=== PATIENT | male | born 1985 | race African-American/Black ===

== ENCOUNTER 2016-09-22 17:21 | Emergency (ER) | payer SELFPAY ==
[~2016-09-22] VITALS: Ht 193 cm; Wt 81.8 kg
[~2016-09-22 17:21] MED LIST: EXJA500T; FOLI5CAP PO
[2016-09-22 17:27] VITALS: BP 133/73; PULSE 120; RESP 20; TEMP 98.9; O2SAT 94
[2016-09-22] MEDS ORDERED: MORPHINE SULFATE 4 MG/ML INJ IV PUSH ONE ×2 (21:15→23:15)
[2016-09-22] MEDS ORDERED: SODIUM CHLOR 0.9% 1000 ML INJ 1,000 ML IV ONE (21:15)
[2016-09-22] MEDS ORDERED: ONDANSETRON HCL 4 MG/2 ML VIAL IV ONE (21:15)
--- NOTE | 2016-09-22 21:23 | PD ---
HPI Chief Complaint: Sickle Cell Time Seen by Provider: 21:04 Travel History International Travel<30 days: No Contact w/Intl Traveler<30days: No Traveled to known affect area: No History of Present Illness HPI This patient complains of sickle cell pain. Was sent here from [facility] where he is been for 2 weeks undergoing alcohol rehabilitation. No fever. No chest pain. No headache. She says diffuse pain in arms and legs. Severity of symptoms appears mild. No alleviating factors. Duration 4 days PFSH Past Medical History Anemia: Yes (sickle cell) Arthritis: No Asthma: No Autoimmune Disease: No Blood Disorders: Yes (SICKLE CELL) Anxiety: Yes Depression: No Heart Rhythm Problems: No Cancer: No Cardiovascular Problems: Yes High Cholesterol: No Chemotherapy: No Chest Pain: No Congestive Heart Failure: No COPD: No Cerebrovascular Accident: No Diabetes: No Diminished Hearing: No Endocrine: No Gastrointestinal Disorders: No GERD: No Genitourinary: No Headaches: No Hepatitis: No Hiatal Hernia: No Heparin Induced Thrombocytopen: No Hypertension: No Immune Disorder: No Kidney Stones: Yes Musculoskeletal: No Neurologic: No Psychiatric: Yes Reproductive: No Respiratory: No Immunizations Current: No Migraines: No Radiation Therapy: No Renal Failure: No Schizophrenia: Yes Seizures: No Sickle Cell Disease: Yes Sleep Apnea: No Thyroid Disease: No Ulcer: No Past Surgical History Abdominal Surgery: Yes (Gall bladder removed) AICD: No Appendectomy: Yes (states he still has it) Arteriovenous Shunt: No Body Medical Devices: PORT OUT Cardiac Surgery: No Cholecystectomy: Yes Ear Surgery: No Endocrine Surgery: No Eye Surgery: No Genitourinary Surgery: No Gynecologic Surgery: No Insulin Pump: No Joint Replacement: No Neurologic Surgery: No Oral Surgery: No Pacemaker: No Thoracic Surgery: No Other Surgery: Yes (port placement in left chEST with REMOVal 2013) Social History Alcohol Use: No (Quit 3 weeks ago ) Tobacco Use: No Substance Use: No Allergies-Medications (Allergen,Severity, Reaction): Coded Allergies: Ibuprofen (Verified Allergy, Severe, FACE SWELLS, 08/05/16) Motrin (Verified Allergy, Severe, LIPS SWELL UP, 08/05/16) Rocephin (Verified Allergy, Severe, DIFFICULTY BREATHING, 08/05/16) Uncoded Allergies: NSAIDS (Allergy, Severe, 12/10/14) Per pt. Reported Meds & Prescriptions Reported Meds & Active Scripts Active Reported Folic Acid 5 Mg Cap 5 Mg PO DAILY Exjade (Deferasirox) 500 Mg Tab Do not chew/swallow tablets whole. Completely disperse tablets in water, orange or apple juice (use 3.5 ounces for total doses <1 g; 7 ounces for doses =1 g). Review of Systems General / Constitutional: No: Fever Eyes: No: Visual changes HENT: No: Headaches Cardiovascular: No: Chest Pain or Discomfort Respiratory: No: Shortness of Breath Gastrointestinal: No: Abdominal Pain Genitourinary: No: Dysuria Musculoskeletal: Positive: Pain Skin: No Rash Neurologic: No: Weakness Psychiatric: No: Depression Endocrine: No: Polydipsia Hematologic/Lymphatic: No: Easy Bruising Physical Exam Narrative GENERAL: Well-nourished, well-developed patient in no apparent distress. SKIN: Warm and dry. HEAD: Atraumatic. Normocephalic. EYES: Pupils equal and round. No scleral icterus. No injection or drainage. ENT: No nasal bleeding or discharge. Mucous membranes pink and moist. NECK: Trachea midline. No JVD. CARDIOVASCULAR: Regular rate and rhythm. No murmur appreciated. RESPIRATORY: No accessory muscle use. Clear to auscultation. Breath sounds equal bilaterally. GASTROINTESTINAL: Abdomen soft, non-tender, nondistended. Hepatic and splenic margins not palpable. MUSCULOSKELETAL: No obvious deformities. No clubbing. No cyanosis. No edema. NEUROLOGICAL: Awake and alert. No obvious cranial nerve deficits. Motor grossly within normal limits. Normal speech. PSYCHIATRIC: Appropriate mood and affect; insight and judgment normal. Data Data Last Documented VS Vital Signs Date Time Temp Pulse Resp B/P Pulse Ox O2 Delivery O2 Flow Rate FiO2 09/22/16 17:27 98.9 120 20 133/73 94 Room Air Orders Iv Access Insert/Monitor (09/22/16 21:15) Complete Blood Count With Diff (09/22/16 21:15) Ondansetron Inj (Zofran Inj) (09/22/16 21:15) Sodium Chlor 0.9% 1000 Ml Inj (Ns 1000 M (09/22/16 21:15) Morphine Inj (Morphine Inj) (09/22/16 21:15) Morphine Inj (Morphine Inj) (09/22/16 23:15) Sodium Chlorid 0.9% 500 Ml Inj (Ns 500 M (09/22/16 23:15) Labs Laboratory Tests Test 09/22/16 21:37 White Blood Count 19.7 TH/MM3 Red Blood Count 2.62 MIL/MM3 Hemoglobin 8.2 GM/DL Hematocrit 23.2 % Mean Corpuscular Volume 88.5 FL Mean Corpuscular Hemoglobin 31.3 PG Mean Corpuscular Hemoglobin 35.4 % Concent Red Cell Distribution Width 22.7 % Platelet Count 185 TH/MM3 Mean Platelet Volume 9.6 FL Neutrophils (%) (Auto) 79.5 % Lymphocytes (%) (Auto) 10.2 % Monocytes (%) (Auto) 10.0 % Eosinophils (%) (Auto) 0.1 % Basophils (%) (Auto) 0.2 % Neutrophils # (Auto) 15.7 TH/MM3 Lymphocytes # (Auto) 2.0 TH/MM3 Monocytes # (Auto) 2.0 TH/MM3 Eosinophils # (Auto) 0.0 TH/MM3 Basophils # (Auto) 0.0 TH/MM3 CBC Comment AUTO DIFF Differential Total Cells 100 Counted Neutrophils % (Manual) 83 % Band Neutrophils % 2 % Lymphocytes % 10 % Monocytes % 5 % Neutrophils # (Manual) 16.7 TH/MM3 Nucleated Red Blood Cells 8 /100 WBC Differential Comment FINAL DIFF MANUAL Platelet Estimate NORMAL Platelet Morphology Comment NORMAL Sickle Cells 2+ Target Cells 1+ Ovalocytes 1+ MDM Medical Decision Making Medical Screen Exam Complete: Yes Emergency Medical Condition: Yes Medical Record Reviewed: Yes Differential Diagnosis Sickle pain, malingering, narcotic seeking behavior Narrative Course I have reviewed the patient's electronic medical record. Patient is here multiple times in July 2016, diagnosed with alcohol Intoxication and malingering IV placed I gave him IV Zofran and IV morphine and 1 L normal saline IV bolus CBC shows hemoglobin of 8.2 I gave him an additional morphine dose and half liter normal saline Stable for return to [facility] Diagnosis Primary Impression: Sickle cell pain crisis Additional Instructions: The patient was advised to follow up with their physician and return if they worsen. Med/Other Pt SpecificInfo: Other Disposition: 65 DISC TO [facility] Condition: Stable Martinez Douglas MD Sep 22, 2016 21:23
[2016-09-22 22:10] LABS: AUTOMATED NEUTROPHIL # 15.7 TH/MM3 (1.8-7.7); BASOPHIL % 0.2 % (0.0-2.0); EOSINOPHIL % 0.1 % (0.0-4.0); HEMATOCRIT 23.2 % (39.0-51.0); LYMPH % 10.2 % (9.0-44.0); MEAN CELL VOLUME 88.5 FL (80.0-100.0); MEAN CORPUSCULAR HEMOGLOBIN 31.3 PG (27.0-34.0); MEAN CORPUSCULAR HGB CONC 35.4 % (32.0-36.0); NEUT % 79.5 % (16.0-70.0); PLATELET COUNT 185 TH/MM3 (150-450); RED BLOOD COUNT 2.62 MIL/MM3 (4.50-5.90); RED CELL DISTRIBUTION WIDTH 22.7 % (11.6-17.2); WHITE BLOOD COUNT 19.7 TH/MM3 (4.0-11.0)
[2016-09-22 22:13] LABS: HEMO FLAGS AUTO DIFF
[2016-09-22 22:42] LABS: BANDS 2 % (0-6); CORRECTED NUCLEATED RBC 8 /100 WBC (0-0); NEUTROPHIL # MANUAL DIFF 16.7 TH/MM3 (1.8-7.7); OVALOCYTES 1+ (NORMAL); POLYS (SEG NEUTROPHILS) 83 % (16-70); SICKLE CELLS 2+ (NORMAL); TARGET CELLS 1+ (NORMAL); WBC DIFF SAMPLE 100
[2016-09-22 22:43] LABS: PLATELET ESTIMATE SMEAR NORMAL (NORMAL); PLATELET MORPHOLOGY NORMAL (NORMAL); SCAN/DIFF FINAL DIFF MANUAL
[2016-09-22] MEDS ORDERED: SODIUM CHLORID 0.9% 500 ML INJ 500 ML IV SCH (23:15)
[2016-09-23 01:08] VITALS: BP 135/63
[2016-09-23] MEDS ORDERED: FOLI5CAP PO (14:50)
== END 2016-09-23 01:15 ==
LOC: NEPA 17:21
DX: D57.00 Hb-SS disease with crisis, unspecified (principal); F10.21 Alcohol dependence, in remission; F41.9 Anxiety disorder, unspecified; Z87.442 Personal history of urinary calculi
CPT/HCPCS: 85007; 85027; 96361; 96374; 96375; 96376; 99284; J2270; J2405; J7030; J7040

== ENCOUNTER 2016-09-23 10:56 | Emergency (ER) | payer SELFPAY ==
[~2016-09-23] VITALS: Ht 193 cm; Wt 85.0 kg
[2016-09-23 10:58] VITALS: BP 122/58; PULSE 118; RESP 14; TEMP 98.5; O2SAT 96
--- NOTE | 2016-09-23 12:50 | PD ---
HPI Chief Complaint: Sickle Cell Time Seen by Provider: 12:46 Travel History International Travel<30 days: No Contact w/Intl Traveler<30days: No Traveled to known affect area: No History of Present Illness HPI 31-year-old male came to the emergency room with history of painful sickle cell crisis. Patient has history of sickle cell disease and has had these symptoms multiple times. His last blood transfusion was 3 months ago. This time it's been going on for past 4 days. He was at home trying to keep himself hydrated but the pain is getting worse. He is hemodynamically stable otherwise. He says he is hurting everywhere. No history of fever or chills. No history of cough or shortness of breath. Nothing worsens or makes the pain better. 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 [facility] Past Medical History Narrative Medical List of his past medical history as reviewed from the nursing note. Anemia: Yes (sickle cell) Arthritis: No Asthma: No Autoimmune Disease: No Blood Disorders: Yes (SICKLE CELL) Anxiety: Yes Depression: No Heart Rhythm Problems: No Cancer: No Cardiovascular Problems: Yes High Cholesterol: No Chemotherapy: No Chest Pain: No Congestive Heart Failure: No COPD: No Cerebrovascular Accident: No Diabetes: No Diminished Hearing: No Endocrine: No Gastrointestinal Disorders: No GERD: No Genitourinary: No Headaches: No Hepatitis: No Hiatal Hernia: No Heparin Induced Thrombocytopen: No Hypertension: No Immune Disorder: No Kidney Stones: Yes Musculoskeletal: No Neurologic: No Psychiatric: Yes Reproductive: No Respiratory: No Immunizations Current: No Migraines: No Radiation Therapy: No Renal Failure: No Schizophrenia: Yes Seizures: No Sickle Cell Disease: Yes Sleep Apnea: No Thyroid Disease: No Ulcer: No Past Surgical History Abdominal Surgery: Yes (Gall bladder removed) AICD: No Appendectomy: Yes (states he still has it) Arteriovenous Shunt: No Body Medical Devices: PORT OUT Cardiac Surgery: No Cholecystectomy: Yes Ear Surgery: No Endocrine Surgery: No Eye Surgery: No Genitourinary Surgery: No Gynecologic Surgery: No Insulin Pump: No Joint Replacement: No Neurologic Surgery: No Oral Surgery: No Pacemaker: No Thoracic Surgery: No Other Surgery: Yes (port placement in left chEST with REMOVal 2013) Social History Alcohol Use: No (Quit 3 weeks ago ) Tobacco Use: No Substance Use: No Allergies-Medications (Allergen,Severity, Reaction): Coded Allergies: Ibuprofen (Verified Allergy, Severe, FACE SWELLS, 08/05/16) Motrin (Verified Allergy, Severe, LIPS SWELL UP, 08/05/16) Rocephin (Verified Allergy, Severe, DIFFICULTY BREATHING, 08/05/16) Uncoded Allergies: NSAIDS (Allergy, Severe, 12/10/14) Per pt. Comments No known drug allergies. Reported Meds & Prescriptions Reported Meds & Active Scripts Active Folic Acid 5 Mg Cap 5 Mg PO DAILY 30 Days Reported Folic Acid 5 Mg Cap 5 Mg PO DAILY Narrative Medication List of his home medications reviewed from the nursing note. Review of Systems Except as stated in HPI: all other systems reviewed are Neg Physical Exam Narrative GENERAL: Awake, alert, no obvious distress SKIN: Warm and dry. Pale HEAD: Atraumatic. Normocephalic. EYES: Pupils equal and round. Patient has scleral icterus. No injection or drainage. Pallor ENT: No nasal bleeding or discharge. Mucous membranes pink and moist. NECK: Trachea midline. No JVD. CARDIOVASCULAR: Regular rate and rhythm. No murmur appreciated. RESPIRATORY: No accessory muscle use. Clear to auscultation. Breath sounds equal bilaterally. GASTROINTESTINAL: Abdomen soft, non-tender, nondistended. Hepatic and splenic margins not palpable. MUSCULOSKELETAL: No obvious deformities. No clubbing. No cyanosis. No edema. NEUROLOGICAL: Awake and alert. No obvious cranial nerve deficits. Motor grossly within normal limits. Normal speech. PSYCHIATRIC: Appropriate mood and affect; insight and judgment normal. Data Data Last Documented VS Vital Signs Date Time Temp Pulse Resp B/P Pulse Ox O2 Delivery O2 Flow Rate FiO2 09/23/16 15:15 17 09/23/16 13:20 109 96 Room Air 09/23/16 13:19 132/70 09/23/16 10:58 98.5 Orders Complete Blood Count With Diff (09/23/16 12:52) Comprehensive Metabolic Panel (09/23/16 12:52) Type And Screen (09/23/16 12:52) Ecg Monitoring (09/23/16 12:52) Iv Access Insert/Monitor (09/23/16 12:52) Oximetry (09/23/16 12:52) Sodium Chlor 0.9% 1000 Ml Inj (Ns 1000 M (09/23/16 12:52) Sodium Chloride 0.9% Flush (Ns Flush) (09/23/16 13:00) Hydromorphone Pf Inj (Dilaudid Pf Inj) (09/23/16 13:00) Direct Bilirubin (09/23/16 12:52) Folic Acid (Folate) (09/23/16 14:45) Labs Laboratory Tests Test 09/23/16 09/23/16 13:34 14:08 White Blood Count 17.1 TH/MM3 Red Blood Count 2.76 MIL/MM3 Hemoglobin 8.4 GM/DL Hematocrit 25.0 % Mean Corpuscular Volume 90.6 FL Mean Corpuscular Hemoglobin 30.4 PG Mean Corpuscular Hemoglobin 33.6 % Concent Red Cell Distribution Width 21.7 % Platelet Count 188 TH/MM3 Mean Platelet Volume 9.4 FL Neutrophils (%) (Auto) 73.7 % Lymphocytes (%) (Auto) 12.6 % Monocytes (%) (Auto) 13.2 % Eosinophils (%) (Auto) 0.2 % Basophils (%) (Auto) 0.3 % Neutrophils # (Auto) 12.6 TH/MM3 Lymphocytes # (Auto) 2.2 TH/MM3 Monocytes # (Auto) 2.3 TH/MM3 Eosinophils # (Auto) 0.0 TH/MM3 Basophils # (Auto) 0.1 TH/MM3 CBC Comment AUTO DIFF Differential Comment AUTO DIFF CONFIRMED Platelet Estimate NORMAL Platelet Morphology Comment NORMAL Polychromasia 2.6 % Sickle Cells 2+ Ovalocytes 1+ Sodium Level 135 MEQ/L Potassium Level 4.2 MEQ/L Chloride Level 102 MEQ/L Carbon Dioxide Level 22.0 MEQ/L Anion Gap 11 MEQ/L Blood Urea Nitrogen 7 MG/DL Creatinine 0.55 MG/DL Estimat Glomerular Filtration 209 ML/MIN Rate Random Glucose 97 MG/DL Calcium Level 9.1 MG/DL Total Bilirubin 8.7 MG/DL Direct Bilirubin 0.9 MG/DL Aspartate Amino Transf 78 U/L (AST/SGOT) Alanine Aminotransferase 81 U/L (ALT/SGPT) Alkaline Phosphatase 132 U/L Total Protein 8.5 GM/DL Albumin 4.6 GM/DL Blood Type O POSITIVE Antibody Screen NEGATIVE MDM Medical Decision Making Medical Screen Exam Complete: Yes Emergency Medical Condition: Yes Medical Record Reviewed: Yes Differential Diagnosis Sickle cell painful crisis, conjugated bilirubinemia Narrative Course 2:38 PM awaiting for the reticulocyte count. His hemoglobin is 8.4 which does not require transfusion today. His total bilirubin is 8.7 and direct is only 0.5. This tells me that patient has been having hemolysis. 2:45 PM I compared his blood test results with the previous results. Seems like patient was in this institution yesterday and only CBC was done. His hemoglobin and hematocrit has not changed much. As far as his bilirubin is concerned he has had indirect hyperbilirubinemia in the past. Patient told me that he has drinking problem and he is actually in [facility] for alcohol rehabilitation. 1 L of normal saline bolus at this point and I have given him a dose of folic acid. Patient says that he does not take his folic acid daily. He is out of his prescription. I will give him a prescription to go home with. He needs to follow up with his bench grinder. he will be DC home. Procedures Procedure Narrative Emergency department US guided peripheral IV was performed with patient consent. Linear probe was used in the transverse views of the peripheral vein to assist with vascular access. EKG Prior to Arrival: No Diagnosis Primary Impression: Sickle cell pain crisis Additional Impression: Indirect hyperbilirubinemia Referrals: Primary Care Physician 2 days Additional Instructions: Please return to the ER if the condition worsens or any other new concerns. Please follow-up with your bench grinder. Take the [place] catheter that every day. Follow-up with your primary care in couple days. Med/Other Pt SpecificInfo: Prescription(s) given Scripts Folic Acid 5 Mg Cap5 Mg PO DAILY 30 Days Ref 0 Prov:David Troy MD 09/23/16 Disposition: 01 DISCHARGE HOME Condition: Stable David Troy MD Sep 23, 2016 12:50
[2016-09-23] MEDS ORDERED: SODIUM CHLOR 0.9% 1000 ML INJ 1,000 ML IV SCH (12:52)
[2016-09-23] MEDS ORDERED: SODIUM CHLORIDE 0.9% FLUSH 5 ML FLUSH IVF PRN (13:00)
[2016-09-23] MEDS ORDERED: HYDROmorphone HCL PF 1 MG/ML VIAL IV PUSH ONE (13:00)
[2016-09-23 13:18] VITALS: O2SAT 96
[2016-09-23 13:19] VITALS: BP 132/70; PULSE 100; RESP 15; O2SAT 96
[2016-09-23 14:02] LABS: AUTOMATED NEUTROPHIL # 12.6 TH/MM3 (1.8-7.7); BASOPHIL # 0.1 TH/MM3 (0-0.2); BASOPHIL % 0.3 % (0.0-2.0); EOSINOPHIL % 0.2 % (0.0-4.0); HEMO FLAGS AUTO DIFF; LYMPH % 12.6 % (9.0-44.0); LYMPHOCYTE # 2.2 TH/MM3 (1.0-4.8); MEAN CELL VOLUME 90.6 FL (80.0-100.0); MEAN CORPUSCULAR HEMOGLOBIN 30.4 PG (27.0-34.0); MEAN CORPUSCULAR HGB CONC 33.6 % (32.0-36.0); MONO % 13.2 % (0.0-8.0); NEUT % 73.7 % (16.0-70.0); PLATELET COUNT 188 TH/MM3 (150-450); RED BLOOD COUNT 2.76 MIL/MM3 (4.50-5.90); RED CELL DISTRIBUTION WIDTH 21.7 % (11.6-17.2); WHITE BLOOD COUNT 17.1 TH/MM3 (4.0-11.0)
[2016-09-23 14:25] LABS: ALT (GPT) 81 U/L (12-78); ANION GAP 11 MEQ/L (5-15); AST (GOT) 78 U/L (15-37); BLOOD UREA NITROGEN 7 MG/DL (7-18); CHLORIDE 102 MEQ/L (98-107); GLOMERULAR FILTRATION RATE 209 ML/MIN (>89); POTASSIUM 4.2 MEQ/L (3.5-5.1); SODIUM (NA) 135 MEQ/L (136-145)
[2016-09-23 14:27] LABS: ALKALINE PHOSPHATASE 132 U/L (45-117); TOTAL BILIRUBIN ADULT 8.7 MG/DL (0.2-1.0)
[2016-09-23 14:43] LABS: PLATELET ESTIMATE SMEAR NORMAL (NORMAL); SCAN/DIFF AUTO DIFF CONFIRMED
[2016-09-23 14:44] LABS: OVALOCYTES 1+ (NORMAL); PLATELET MORPHOLOGY NORMAL (NORMAL); POLYCHROMASIA 2.6 % (0.0-1.9); SICKLE CELLS 2+ (NORMAL)
[2016-09-23] MEDS ORDERED: FOLIC ACID 1 MG TAB PO ONE (14:45)
[2016-09-23] MEDS ORDERED: FOLI5CAP PO (14:50)
[2016-09-23 15:15] VITALS: RESP 17
== END 2016-09-23 16:00 | disposition home or self-care (01) ==
LOC: NEPD 10:56
DX: D57.00 Hb-SS disease with crisis, unspecified (principal); E80.6 Other disorders of bilirubin metabolism
CPT/HCPCS: 80053; 82248; 85025; 86850; 86900; 86901; 96361; 96374; 99284; J1170; J7030